=== PATIENT | male | born 1965 | race Caucasian/White ===

== ENCOUNTER 2016-12-20 18:41 | Emergency (ER) | payer OTHER ==
[~2016-12-20] VITALS: Ht 180.3 cm; Wt 129.5 kg
[~2016-12-20 18:41] MED LIST: AMBIEN10 MG PO; ASPIR 8181 M1 PO; ATENOLOL25 MG PO; ATIVAN1 MG PO; CLONAZEPAM0.5 MG PO; DAILY VITE1 EAC1 PO; FLUOXETINE HCL10 MG PO; INVEGA SUS156 MG/1 M IM; INVEGA1.5 MG PO; INVEGA3 MG PO; INVEGA9 M1 PO; IRON160 M1 PO; Invega PO; LISINOPRIL40 MG PO; LOPRESSOR25 MG PO; LOVASTATIN10 MG PO; OMEPRAZOLE40 M1 PO; PEN-VEE K,VEET500 MG PO; PRILOSEC40 MG PO; PROTONIX40 MG PO; RESTORIL30 MG PO; TEMAZEPAM30 MG PO; TENORMIN25 MG PO; TOPAMAX200 MG PO; TYLENOL REGULA325 MG PO; ZESTRIL40 MG PO; ZOLPIDEM TARTRA10 MG PO; ZOLPIDEM TARTRAT5 MG PO
[2016-12-20 19:24] LABS: HEMATOCRIT 37.8 % (38.0-50.0); MCH 29.1 PG (29.0-34.0); MCHC 33.6 G/DL (30.0-36.0); MCV 86.7 FL (86-99); MEAN PLAT.VOLUME 8.1 uM^3 (9.0-12.4); PLATELET COUNT 292 K/uL (156-360); RBC DIS.WIDTH-CV 13.2 % (11.8-14.6); RBC DIS.WIDTH-SD 41.5 % (39-53); RED BLOOD COUNT 4.36 M/uL (4.00-5.50); WHITE BLOOD COUNT 5.3 K/uL (4.1-10.2)
[2016-12-20 19:30] LABS: ADD MIUA? YES; BILIRUBIN NEGATIVE; BLOOD SMALL; COLOR STRAW ((YELLOW)); GLUCOSE (STRIP) NEGATIVE; KETONES NEGATIVE; LEUKOCYTES NEGATIVE; NITRITE NEGATIVE; PROTEIN (STRIP) NEGATIVE; SPECIFIC GRAVITY 1.003 (1.000-1.030); UROBILINOGEN 0.2 MG/DL (0.2-1.0)
[2016-12-20 19:32] LABS: CHLORIDE 110 mEq/L (99-109); POTASSIUM 3.7 mEq/L (3.7-5.4); SODIUM 139 mEq/L (136-147)
[2016-12-20 19:34] LABS: GLUCOSE 94 mg/dL (70-99)
[2016-12-20 19:35] LABS: ANION GAP 8 MEQ/L (2-14)
[2016-12-20 19:36] LABS: TOTAL BILIRUBIN 0.3 mg/dL (0.0-1.0)
[2016-12-20 19:37] LABS: SERUM ETHYL ALCOHOL < 10 mg/dL
[2016-12-20 19:38] LABS: ALKALINE PHOSPHATASE 81 IU/L (3-129); GFR ESTIMATE (CALCULATED) > 59 mL/min/
[2016-12-20 19:39] LABS: UREA NITROGEN (BUN) 7 mg/dL (9-23)
[2016-12-20 19:43] LABS: AMPHETAMINE NEGATIVE (500 ng/mL); BARBITURATES NEGATIVE (200 ng/mL); BENZODIAZEPINES NEGATIVE (150 ng/mL); COCAINE NEGATIVE (150 ng/mL); INTERNAL CONTROLS VALID? YES; METHADONE NEGATIVE (200 ng/mL); METHAMPHETAMINE NEGATIVE (500 ng/mL); OPIATES (MORPHINE) NEGATIVE (100 ng/mL); OXYCODONE NEGATIVE (100 ng/mL); PHENCYCLIDINE NEGATIVE (25 ng/mL); PROPOXYPHENE NEGATIVE (300 ng/mL); THC CANNABINOIDS NEGATIVE (50 ng/mL); TRICYCLIC ANTIDEPRESSANTS NEGATIVE (300 ng/mL)
[2016-12-20 20:01] LABS: BACTERIA NONE SEEN /HPF; EPITHELIAL CELLS NONE SEEN /HPF; MUCUS TRACE /LPF; RED BLOOD CELLS 0-5 /HPF (0-5); WHITE BLOOD CELLS NONE SEEN /HPF (0-5)
[2016-12-20] MEDS ORDERED: SODIUM CHLORIDE1 G1 PO (22:11)
[2016-12-21 07:59] VITALS: BP 161/103
== END 2016-12-21 08:04 ==
LOC: EME 18:41
PROVIDERS: Emergency Medicine
DX: F20.9 Schizophrenia, unspecified (principal); R45.850 Homicidal ideations; Z04.6 Encounter for general psychiatric examination, requested by authority; Z86.718 Personal history of other venous thrombosis and embolism; Z79.82 Long term (current) use of aspirin; Z87.891 Personal history of nicotine dependence
CPT/HCPCS: 80053; 81003; 85027; 90837; 99281; 99285; G0480